=== PATIENT | female | born 1935 | race Caucasian/White ===

== ENCOUNTER 2020-10-02 12:42 | Observation (INO) ==
[2020-10-02] MEDS ORDERED: Nitroglycerin 0.4 MG TAB.SUBL SL PRN (13:37)
[2020-10-02 13:55] LABS: Hematocrit 38.2 % (35.3-44.9); Hemoglobin 12.6 g/dL (11.5-15.4); Mean Corpuscular Hemoglobin 29.9 pg (28.0-33.3); Mean Corpuscular Volume 90.5 fL (83.0-100.0); Mean Platelet Volume 9.3 fL (9.4-12.4); Platelet Count 242 K/mcL (140-400); Red Blood Count 4.22 M/mcL (3.82-4.97); White Blood Count 9.6 K/mcL (4.3-11.1)
[2020-10-02 13:56] LABS: Basophils # 0.1 K/mcL (0.0-0.2); Basophils % 0.9 %; Eosinophils # 0.2 K/mcL (0.0-0.6); Immature Granulocytes % 0.7 % (0-4); Lymphocytes # 3.2 K/mcL (0.6-4.6); Lymphocytes % 33.3 %; Monocytes # 0.6 K/mcL (0.0-1.3); Monocytes % 6.4 %; Neutrophils # 5.4 K/mcL (1.6-8.9); Segmented Neutrophils % 56.7 %
[2020-10-02 14:04] LABS: Activated Partial Thrombo Time 28.7 Seconds (26.0-36.0); INR 1.1; Prothrombin Time 13.2 Seconds (9.4-12.1)
[2020-10-02 14:12] LABS: BUN/Creatinine Ratio 16 (6-26); Blood Urea Nitrogen 16 mg/dL (8-23); Calcium 9.2 mg/dL (8.6-10.3); Carbon Dioxide 27 mEq/L (23-29); Chloride 102 mEq/L (98-107); Glucose 120 mg/dL (70-105); Osmolality,Calculated 286 (280-300); Potassium 3.5 mEq/L (3.5-5.1); Sodium 137 mEq/L (136-145); eGFR For African Americans > 60 (> 60); eGFR For Non-African Americans 51 (> 60)
[2020-10-02 14:13] LABS: Troponin I < 0.03 ng/mL (< 0.04)
[2020-10-02 14:24] LABS: Thyroid Stimulating Hormone 0.601 mcIU/mL (0.340-5.600)
[2020-10-02] MEDS ORDERED: Ondansetron 4 MG/2 ML VIAL IVP PRN (15:18)
[2020-10-02] MEDS ORDERED: Dextrose Gel 15 GM/37.5 ML TUBE PO PRN ×2 (15:18)
[2020-10-02] MEDS ORDERED: *HR* Dextrose 50 % in Water (Vial) 50 ML VIAL IVP PRN (15:18)
[2020-10-02] MEDS ORDERED: D5% in Water 1,000 ML IVC PRN (15:18)
[2020-10-02] MEDS ORDERED: Acetaminophen 325 MG TABLET PO PRN (15:18)
[2020-10-02] MEDS ORDERED: Naloxone 0.4 MG/ML INJ IVP PRN (15:18)
[2020-10-02] MEDS ORDERED: Perflutren Lipid Microsphere 1.3 ML in 0.9 % Sodium Chloride 8.7 ML IVP PRN (15:51)
[2020-10-02] MEDS ORDERED: *HR* Heparin 5,000 UNIT/ML VIAL SQ SCH (18:00)
[2020-10-02] MEDS: Insulin LISPRO 300 UNITS/3 ML VIAL SUBQ SCH (18:12)
[2020-10-02] MEDS: *HR* Enoxaparin 80 MG/0.8 ML SYRINGE SQ SCH (18:43)
[2020-10-02] MEDS ORDERED: Insulin LISPRO 300 UNITS/3 ML VIAL SUBQ SCH (21:00)
[2020-10-02] MEDS ORDERED: Insulin DETEMIR 100 UNIT/ML X5UNITS SUBQ SCH (21:00)
[2020-10-02] MEDS: lisinopriL 20 MG TABLET PO SCH (22:30)
[2020-10-02] MEDS: Metoprolol XL (24 HR) Succ 50 MG TAB.ER.24H PO SCH (22:30)
[2020-10-03 02:39] LABS: BUN/Creatinine Ratio 19 (6-26); Blood Urea Nitrogen 18 mg/dL (8-23); Calcium 9.5 mg/dL (8.6-10.3); Carbon Dioxide 24 mEq/L (23-29); Chloride 103 mEq/L (98-107); Glucose 197 mg/dL (70-105); Osmolality,Calculated 289 (280-300); Potassium 3.4 mEq/L (3.5-5.1); Sodium 136 mEq/L (136-145); eGFR For African Americans > 60 (> 60); eGFR For Non-African Americans 57 (> 60)
[2020-10-03 02:40] LABS: Chol/HDL Ratio 5.7 (0-4.9)
[2020-10-03 03:18] LABS: Estimated Average Glucose 200 mg/dl; Hemoglobin A1C 8.6 %
[2020-10-03] MEDS: *HR* Enoxaparin 80 MG/0.8 ML SYRINGE SQ SCH ×2 (05:44→16:48)
[2020-10-03] MEDS ORDERED: Regadenoson 0.4 MG/5 ML SYRINGE IVP ONE (06:46)
[2020-10-03] MEDS: Insulin LISPRO 300 UNITS/3 ML VIAL SUBQ SCH ×3 (07:07→16:49)
[2020-10-03] MEDS: Metoprolol XL (24 HR) Succ 50 MG TAB.ER.24H PO SCH (10:05)
[2020-10-03] MEDS: lisinopriL 20 MG TABLET PO SCH (10:05)
[2020-10-03 11:06] LABS: Magnesium 1.7 mg/dL (1.6-2.6)
[2020-10-03] MEDS: Apixaban 5 MG TABLET PO SCH ×2 (12:44→17:53)
[2020-10-03 15:24] VITALS: BP 152/75; PULSE 74; TEMP 97.6; O2SAT 95
== END 2020-10-03 18:19 | disposition home or self-care (01) ==
LOC: 3BNU 12:42 → EMEROOARM 12:42 → SUATTDRO 16:24 → 3BNU 17:20
PROVIDERS: ADMIT Student in an Organized Health Care Education/Training Program; ATTEND Family Medicine

== ENCOUNTER 2021-06-23 12:41 | Inpatient (IN) ==
[2021-06-23] MEDS ORDERED: Isovue-370 500 ML BOTTLE IVP ONE (13:03)
[2021-06-23 13:15] LABS: Basophils # 0.1 K/mcL (0.0-0.2); Basophils % 1.1 %; Eosinophils # 0.3 K/mcL (0.0-0.6); Eosinophils % 2.3 %; Hematocrit 43.3 % (35.3-44.9); Hemoglobin 13.9 g/dL (11.5-15.4); Immature Granulocytes % 0.6 % (0-4); Lymphocytes # 3.6 K/mcL (0.6-4.6); Lymphocytes % 34.1 %; Mean Corpuscular HGB Conc 32.1 g/dL (31.6-35.5); Mean Corpuscular Hemoglobin 29.3 pg (28.0-33.3); Mean Corpuscular Volume 91.2 fL (83.0-100.0); Mean Platelet Volume 9.5 fL (9.4-12.4); Monocytes # 0.7 K/mcL (0.0-1.3); Monocytes % 6.7 %; Neutrophils # 5.9 K/mcL (1.6-8.9); Platelet Count 228 K/mcL (140-400); Red Blood Count 4.75 M/mcL (3.82-4.97); Red Cell Distribution Width 15.8 % (11.5-14.5); Segmented Neutrophils % 55.2 %; White Blood Count 10.7 K/mcL (4.3-11.1)
[2021-06-23 13:37] LABS: BUN/Creatinine Ratio 14 (6-26); Blood Urea Nitrogen 14 mg/dL (8-23); Calcium 9.4 mg/dL (8.6-10.3); Carbon Dioxide 28 mEq/L (23-29); Chloride 103 mEq/L (98-107); Glucose 107 mg/dL (70-105); Magnesium 1.7 mg/dL (1.6-2.6); Osmolality,Calculated 289 (280-300); Potassium 3.8 mEq/L (3.5-5.1); Sodium 139 mEq/L (136-145); Troponin I < 0.03 ng/mL (< 0.04); eGFR For African Americans > 60 (> 60); eGFR For Non-African Americans 54 (> 60)
[2021-06-23 14:00] LABS: Bilirubin,Urine Negative (Negative); Blood,Urine Negative (Negative); Clarity,Urine Clear (Clear); Color,Urine Colorless (Yellow); Glucose,Urine (UA) Normal (Normal); Ketones,Urine Negative (Negative); Leukocyte Esterase,Urine Negative (Negative); Nitrite,Urine Negative (Negative); PH,Urine 6.5 pH Units (5.0-8.0); Protein,Urine 70 mg/dL (Neg-Trace); RBC,Urine 0-3 per hpf (0-3); Squamous Epithelial Cell,Urine Few per hpf (None-Few); Urobilinogen,Urine Normal (Normal); WBC,Urine 0-3 per hpf (0-3)
[2021-06-23] MEDS ORDERED: Acetaminophen 325 MG TABLET PO PRN (16:47)
[2021-06-23] MEDS ORDERED: Naloxone 0.4 MG/ML INJ IVP PRN (16:47)
[2021-06-23] MEDS ORDERED: Melatonin 3 MG TABLET PO PRN (16:47)
[2021-06-23] MEDS ORDERED: Dextrose 4 GM Chewable Tablets PO PRN ×2 (16:50)
[2021-06-23] MEDS ORDERED: D5% in Water 1,000 ML IVC PRN (16:50)
[2021-06-23] MEDS ORDERED: Fluticasone Propionate Nasal 50 MCG/SPRAY BOTTLE NS PRN (16:50)
[2021-06-23] MEDS ORDERED: *HR* Dextrose 50 % in Water (Syg) 50 ML SYRINGE IVP PRN (16:50)
[2021-06-23] MEDS ORDERED: 0.9 % Sodium Chloride 1,000 ML IVC SCH (17:00)
[2021-06-23 17:46] LABS: INR 2.2; Prothrombin Time 24.6 Seconds (9.4-12.1)
[2021-06-23 17:59] LABS: Troponin I < 0.03 ng/mL (< 0.04)
[2021-06-23] MEDS ORDERED: Warfarin perPT PO PRN (18:00)
[2021-06-23] MEDS ORDERED: *HR* Warfarin 2.5 MG TABLET PO SCH (18:00)
[2021-06-23 18:13] LABS: Thyroid Stimulating Hormone 0.748 mcIU/mL (0.340-5.600)
[2021-06-23] MEDS: lisinopriL 20 MG TABLET PO SCH (20:18)
[2021-06-23] MEDS: Metoprolol XL (24 HR) Succ 50 MG TAB.ER.24H PO SCH (20:18)
[2021-06-23] MEDS: *HR* LORazepam 1 MG TABLET PO PRN (20:19)
[2021-06-23] MEDS: *HR* Labetalol 20 MG/4 ML SYRINGE IVP PRN (22:48)
[2021-06-23] MEDS: Insulin LISPRO 300 UNITS/3 ML VIAL SUBQ SCH (22:51)
[2021-06-24 01:19] LABS: Basophils # 0.1 K/mcL (0.0-0.2); Basophils % 0.9 %; Eosinophils # 0.2 K/mcL (0.0-0.6); Hematocrit 39.6 % (35.3-44.9); Immature Granulocytes % 0.5 % (0-4); Lymphocytes # 3.1 K/mcL (0.6-4.6); Lymphocytes % 35.8 %; Mean Corpuscular HGB Conc 31.1 g/dL (31.6-35.5); Mean Corpuscular Hemoglobin 28.2 pg (28.0-33.3); Mean Corpuscular Volume 90.8 fL (83.0-100.0); Mean Platelet Volume 9.8 fL (9.4-12.4); Monocytes # 0.6 K/mcL (0.0-1.3); Monocytes % 7.2 %; Neutrophils # 4.6 K/mcL (1.6-8.9); Platelet Count 180 K/mcL (140-400); Red Blood Count 4.36 M/mcL (3.82-4.97); Red Cell Distribution Width 15.8 % (11.5-14.5); Segmented Neutrophils % 53.6 %; White Blood Count 8.6 K/mcL (4.3-11.1)
[2021-06-24 01:21] LABS: Hemoglobin 12.3 g/dL (11.5-15.4)
[2021-06-24 01:27] LABS: INR 2.4; Prothrombin Time 26.5 Seconds (9.4-12.1)
[2021-06-24 01:40] LABS: Albumin 3.2 g/dL (3.5-5.7); Albumin/Globulin Ratio 1.2 (1.1-2.2); Bilirubin,Total 0.4 mg/dL (0.3-1.0); Calcium 8.6 mg/dL (8.6-10.3); Globulin 2.7 g/dL (2.4-3.5); Potassium 3.7 mEq/L (3.5-5.1); Total Protein 5.9 g/dL (6.4-8.9)
[2021-06-24] MEDS: *HR* Labetalol 20 MG/4 ML SYRINGE IVP PRN (04:18)
[2021-06-24] MEDS: Insulin LISPRO 300 UNITS/3 ML VIAL SUBQ SCH ×4 (07:53→21:09)
[2021-06-24] MEDS: Thiamine (B-1) 100 MG TABLET PO SCH (08:26)
[2021-06-24] MEDS: Metoprolol XL (24 HR) Succ 50 MG TAB.ER.24H PO SCH ×2 (08:27→21:08)
[2021-06-24] MEDS: lisinopriL 20 MG TABLET PO SCH ×2 (08:27→21:07)
[2021-06-24] MEDS: Cyanocobalamin (B-12) 1,000 MCG TABLET PO SCH (08:27)
[2021-06-24] MEDS: Furosemide 20 MG TABLET PO SCH (08:27)
[2021-06-24] MEDS ORDERED: amLODIPine 5 MG TABLET PO SCH (09:00)
[2021-06-24] MEDS ORDERED: *HR* LORazepam 2 MG/ML VIAL IVP ONE (12:23)
[2021-06-24] MEDS ORDERED: amLODIPine 5 MG TABLET PO ONE (16:41)
[2021-06-24] MEDS ORDERED: *HR* Warfarin 2.5 MG TABLET PO ONE (18:00)
[2021-06-24] MEDS: *HR* LORazepam 1 MG TABLET PO PRN (21:08)
[2021-06-25] MEDS: *HR* Labetalol 20 MG/4 ML SYRINGE IVP PRN (02:48)
[2021-06-25 05:41] LABS: Alanine Aminotransferase 14 Units/L (7-52); Albumin 3.8 g/dL (3.5-5.7); Albumin/Globulin Ratio 1.4 (1.1-2.2); Alkaline Phosphatase 92 Units/L (34-104); Aspartate Amino Transferase 16 Units/L (13-39); BUN/Creatinine Ratio 18 (6-26); Bilirubin,Total 0.5 mg/dL (0.3-1.0); Blood Urea Nitrogen 17 mg/dL (8-23); Calcium 9.5 mg/dL (8.6-10.3); Carbon Dioxide 23 mEq/L (23-29); Chloride 105 mEq/L (98-107); Globulin 2.8 g/dL (2.4-3.5); Glucose 225 mg/dL (70-105); Osmolality,Calculated 291 (280-300); Potassium 3.6 mEq/L (3.5-5.1); Sodium 136 mEq/L (136-145); Total Protein 6.6 g/dL (6.4-8.9); eGFR For African Americans > 60 (> 60); eGFR For Non-African Americans 56 (> 60)
[2021-06-25 05:42] LABS: INR 2.6; Prothrombin Time 28.5 Seconds (9.4-12.1)
[2021-06-25 05:44] LABS: Basophils # 0.1 K/mcL (0.0-0.2); Basophils % 1.1 %; Eosinophils # 0.3 K/mcL (0.0-0.6); Hematocrit 40.5 % (35.3-44.9); Hemoglobin 12.9 g/dL (11.5-15.4); Immature Granulocytes % 0.5 % (0-4); Lymphocytes # 3.1 K/mcL (0.6-4.6); Lymphocytes % 30.4 %; Mean Corpuscular HGB Conc 31.9 g/dL (31.6-35.5); Mean Corpuscular Hemoglobin 28.2 pg (28.0-33.3); Mean Corpuscular Volume 88.6 fL (83.0-100.0); Mean Platelet Volume 10.1 fL (9.4-12.4); Monocytes # 0.7 K/mcL (0.0-1.3); Neutrophils # 5.9 K/mcL (1.6-8.9); Platelet Count 199 K/mcL (140-400); Red Blood Count 4.57 M/mcL (3.82-4.97); Red Cell Distribution Width 15.9 % (11.5-14.5); White Blood Count 10.3 K/mcL (4.3-11.1)
[2021-06-25] MEDS: lisinopriL 20 MG TABLET PO SCH (08:43)
[2021-06-25] MEDS: Furosemide 20 MG TABLET PO SCH (08:43)
[2021-06-25] MEDS: Metoprolol XL (24 HR) Succ 50 MG TAB.ER.24H PO SCH (08:43)
[2021-06-25] MEDS: Cyanocobalamin (B-12) 1,000 MCG TABLET PO SCH (08:43)
[2021-06-25] MEDS: Thiamine (B-1) 100 MG TABLET PO SCH (08:43)
[2021-06-25] MEDS: Insulin LISPRO 300 UNITS/3 ML VIAL SUBQ SCH ×2 (08:44→12:39)
[2021-06-25] MEDS ORDERED: amLODIPine 5 MG TABLET PO SCH (09:00)
[2021-06-25] MEDS ORDERED: Furosemide 40 MG TABLET PO ONE (12:05)
[2021-06-25 14:30] VITALS: BP 156/73; PULSE 82; TEMP 97.6; O2SAT 95
[2021-06-25] MEDS ORDERED: Furosemide 20 MG TABLET PO SCH (17:00)
== END 2021-06-25 16:20 | disposition home or self-care (01) | DRG 305 ==
LOC: 3BNU 12:41 → EMEROOARM 12:41 → 3BNU 16:55
PROVIDERS: ADMIT Internal Medicine; ATTEND Internal Medicine

== ENCOUNTER 2021-07-06 11:10 | Observation (INO) ==
[2021-07-06 11:50] LABS: Basophils # 0.1 K/mcL (0.0-0.2); Basophils % 0.9 %; Eosinophils # 0.2 K/mcL (0.0-0.6); Hematocrit 39.6 % (35.3-44.9); Hemoglobin 12.5 g/dL (11.5-15.4); Immature Granulocytes % 0.7 % (0-4); Lymphocytes # 2.2 K/mcL (0.6-4.6); Lymphocytes % 20.4 %; Mean Corpuscular HGB Conc 31.6 g/dL (31.6-35.5); Mean Corpuscular Hemoglobin 28.3 pg (28.0-33.3); Mean Corpuscular Volume 89.6 fL (83.0-100.0); Monocytes # 0.8 K/mcL (0.0-1.3); Monocytes % 7.7 %; Neutrophils # 7.4 K/mcL (1.6-8.9); Platelet Count 215 K/mcL (140-400); Red Blood Count 4.42 M/mcL (3.82-4.97); Red Cell Distribution Width 15.5 % (11.5-14.5); Segmented Neutrophils % 68.3 %; White Blood Count 10.8 K/mcL (4.3-11.1)
[2021-07-06 12:13] LABS: Alanine Aminotransferase 13 Units/L (7-52); Albumin 3.9 g/dL (3.5-5.7); Albumin/Globulin Ratio 1.2 (1.1-2.2); Alkaline Phosphatase 75 Units/L (34-104); Aspartate Amino Transferase 15 Units/L (13-39); BUN/Creatinine Ratio 22 (6-26); Bilirubin,Direct 0.3 mg/dL (0.0-0.2); Bilirubin,Indirect 1.3 mg/dL (0.0-1.0); Bilirubin,Total 1.6 mg/dL (0.3-1.0); Blood Urea Nitrogen 19 mg/dL (8-23); Calcium 9.4 mg/dL (8.6-10.3); Carbon Dioxide 22 mEq/L (23-29); Chloride 104 mEq/L (98-107); Globulin 3.2 g/dL (2.4-3.5); Glucose 198 mg/dL (70-105); Osmolality,Calculated 292 (280-300); Potassium 4.1 mEq/L (3.5-5.1); Sodium 137 mEq/L (136-145); Total Protein 7.1 g/dL (6.4-8.9); Troponin I < 0.03 ng/mL (< 0.04); eGFR For African Americans > 60 (> 60); eGFR For Non-African Americans > 60 (> 60)
[2021-07-06 12:26] LABS: Prothrombin Time 33.2 Seconds (9.4-12.1)
[2021-07-06 12:26] LABS: Influenza A PCR Negative (Negative); Influenza B PCR Negative (Negative); Resp. Syncytial Virus PCR Negative (Negative)
[2021-07-06 12:29] LABS: Activated Partial Thrombo Time 47.3 Seconds (26.0-36.0)
[2021-07-06 12:31] LABS: SARS-CoV-2 by PCR (In House) Negative (Negative)
[2021-07-06 13:52] LABS: Bilirubin,Urine Negative (Negative); Blood,Urine Negative (Negative); Clarity,Urine Clear (Clear); Color,Urine Light-Yellow (Yellow); Glucose,Urine (UA) Normal (Normal); Ketones,Urine Negative (Negative); Leukocyte Esterase,Urine Small (Negative); Mucus,Urine Few per lpf (None-Few); Nitrite,Urine Negative (Negative); Protein,Urine Negative (Neg-Trace); RBC,Urine 0-3 per hpf (0-3); Specific Gravity,Urine 1.012 (1.010-1.025); Squamous Epithelial Cell,Urine Few per hpf (None-Few); Urobilinogen,Urine Normal (Normal)
[2021-07-06] MEDS ORDERED: Melatonin 3 MG TABLET PO PRN (14:41)
[2021-07-06] MEDS ORDERED: Ondansetron 4 MG/2 ML VIAL IVP PRN (14:41)
[2021-07-06] MEDS ORDERED: Acetaminophen 325 MG TABLET PO PRN (14:41)
[2021-07-06] MEDS ORDERED: Furosemide 40 MG TABLET PO SCH (14:45)
[2021-07-06] MEDS ORDERED: *HR* Warfarin 5 MG TABLET PO SCH (14:45)
[2021-07-06] MEDS ORDERED: Perflutren Lipid Microsphere 1.3 ML in 0.9 % Sodium Chloride 8.7 ML IVP PRN (17:21)
[2021-07-06] MEDS ORDERED: Furosemide 40 MG/4 ML VIAL IVP ONE (17:22)
[2021-07-06] MEDS ORDERED: hydrALAZINE 10 MG TABLET PO ONE (17:23)
[2021-07-06] MEDS ORDERED: *HR* Warfarin 2.5 MG TABLET PO ONE (18:00)
[2021-07-06] MEDS ORDERED: Warfarin perPT PO PRN (18:00)
[2021-07-06] MEDS: lisinopriL 20 MG TABLET PO SCH (19:38)
[2021-07-06] MEDS: Metoprolol XL (24 HR) Succ 50 MG TAB.ER.24H PO SCH (19:38)
[2021-07-06] MEDS ORDERED: Metoprolol XL (24 HR) Succ 50 MG TAB.ER.24H PO SCH (21:00)
[2021-07-06] MEDS ORDERED: lisinopriL 20 MG TABLET PO SCH (21:00)
[2021-07-06] MEDS: hydrALAZINE 25 MG TABLET PO SCH (23:59)
[2021-07-07 02:21] LABS: BUN/Creatinine Ratio 24 (6-26); Blood Urea Nitrogen 21 mg/dL (8-23); Calcium 9.2 mg/dL (8.6-10.3); Carbon Dioxide 22 mEq/L (23-29); Chloride 105 mEq/L (98-107); Glucose 163 mg/dL (70-105); Magnesium 1.6 mg/dL (1.6-2.6); Osmolality,Calculated 291 (280-300); Phosphorous 3.2 mg/dL (2.7-4.5); Potassium 3.5 mEq/L (3.5-5.1); Sodium 137 mEq/L (136-145); eGFR For African Americans > 60 (> 60); eGFR For Non-African Americans > 60 (> 60)
[2021-07-07 02:31] LABS: INR 2.9; Prothrombin Time 32.4 Seconds (9.4-12.1)
[2021-07-07] MEDS ORDERED: Furosemide 40 MG TABLET PO SCH (08:00)
[2021-07-07] MEDS ORDERED: *HR* Dextrose 50 % in Water (Syg) 50 ML SYRINGE IVP PRN (08:35)
[2021-07-07] MEDS ORDERED: D5% in Water 1,000 ML IVC PRN (08:35)
[2021-07-07] MEDS ORDERED: Dextrose 4 GM Chewable Tablets PO PRN ×2 (08:35)
[2021-07-07] MEDS: lisinopriL 20 MG TABLET PO SCH (08:37)
[2021-07-07] MEDS: hydrALAZINE 25 MG TABLET PO SCH (08:37)
[2021-07-07] MEDS: Metoprolol XL (24 HR) Succ 50 MG TAB.ER.24H PO SCH (08:37)
[2021-07-07] MEDS ORDERED: Insulin DETEMIR 100 UNIT/ML X5UNITS SUBQ SCH (09:00)
[2021-07-07 12:04] VITALS: BP 147/82; PULSE 66; TEMP 97.5; O2SAT 98
[2021-07-07] MEDS ORDERED: *HR* Warfarin 2.5 MG TABLET PO ONE (18:00)
== END 2021-07-07 15:57 | disposition home or self-care (01) ==
LOC: EMEROOARM 11:10 → 2ANU 11:10 → SUATTDRO 14:51 → 2ANU 15:36
PROVIDERS: ADMIT Internal Medicine; ATTEND Student in an Organized Health Care Education/Training Program